=== PATIENT | female | born 1995 | race Caucasian/White ===

== ENCOUNTER 2021-11-24 09:20 | Outpatient (CLI) | payer BC, SELFPAY | END 2021-11-24 09:21 | disposition home or self-care (01) | LOC: NFLDREF 16:26 | PROVIDERS: PCP Nurse Practitioner Family; Visit Provider Family Medicine | DX: E03.9 Hypothyroidism, unspecified (principal) | CPT/HCPCS: 84439; 84443 ==

== ENCOUNTER 2023-02-25 07:29 | Outpatient (CLI) | payer OTHER, SELFPAY | END 2023-02-25 07:30 | disposition home or self-care (01) | LOC: NFLDREF 02-26 07:03 | PROVIDERS: PCP Nurse Practitioner Family; Referring Provider Nurse Practitioner Family; Visit Provider Family Medicine | DX: E03.9 Hypothyroidism, unspecified (principal); Z13.1 Encounter for screening for diabetes mellitus | CPT/HCPCS: 82947; 84443 ==

== ENCOUNTER 2024-03-01 11:34 | Outpatient (CLI) | payer OTHER, SELFPAY | END 2024-03-01 11:35 | disposition home or self-care (01) | LOC: NFLDREF 11:36 | PROVIDERS: PCP Nurse Practitioner Family; Visit Provider Family Medicine | DX: E03.9 Hypothyroidism, unspecified (principal); N93.9 Abnormal uterine and vaginal bleeding, unspecified; Z13.220 Encounter for screening for lipoid disorders; Z13.1 Encounter for screening for diabetes mellitus | CPT/HCPCS: 80061; 82947; 84443; 84702 ==

== ENCOUNTER 2024-03-30 11:00 | Outpatient (CLI) | payer OTHER, SELFPAY ==
--- NOTE | 2024-03-30 11:15 | CRLHL7_ITS ---
For Patients: As a result of the Cures Act, medical imaging exams and procedure reports are released immediately into your electronic medical record. You may view this report before your referring provider. If you have questions, please contact your health care provider. INDICATION: First trimester scan, establish dates. COMPARISON: None. TECHNIQUE: Real-time marie-scale imaging of the pelvis was performed. FINDINGS: Sonographic imaging demonstrates a single living intrauterine gestation. The embryo demonstrates a regular cardiac rate measuring 176 beats per minute. The embryo`s crown-rump length measurement of 1.9 cm corresponds to a gestational age of 8 weeks 3 days with a sonographic due date of 11/06/2024. There is a normal-appearing yolk sac. There are no gross abnormalities noted within the embryo at this early state of development. The gestational sac has a normal appearance. There is a 2.2 x 0.3 x 1.9 cm perigestational hemorrhage. The amount of fluid within the sac appears appropriate for gestational age. The cervix is closed. The myometrium appears normal. The ovaries are of normal size. There are no suspicious fluid collections noted in the cul-de-sac. IMPRESSION: Single living intrauterine with sonographic gestational age 8 weeks 3 days and sonographic due date of 11/06/2024. Subchorionic hemorrhage measures 2.2 x 0.3 x 1.9 cm. Dictated by Jose Alejandro Matamoros MD @ 03/30/2024 12:29:22 PM (Electronically Signed)
== END 2024-03-30 11:01 | disposition home or self-care (01) ==
LOC: US 11:01
PROVIDERS: PCP Nurse Practitioner Family; Visit Provider Advanced Practice Midwife
DX: Z34.91 Encounter for supervision of normal pregnancy, unspecified, first trimester (principal); O20.9 Hemorrhage in early pregnancy, unspecified; Z3A.08 8 weeks gestation of pregnancy
CPT/HCPCS: 76817

== ENCOUNTER 2024-03-30 11:37 | Outpatient (CLI) | payer OTHER, SELFPAY | END 2024-03-30 11:38 | disposition home or self-care (01) | PROVIDERS: PCP Nurse Practitioner Family; Visit Provider Advanced Practice Midwife | DX: Z34.01 Encounter for supervision of normal first pregnancy, first trimester (principal) | CPT/HCPCS: 83020; 83021; 84443; 85660; 86592; 86703; 86704; 86706; 86762; 86787; 86803; 86850; 86900; 86901; 87086; 87340 ==

== ENCOUNTER 2024-05-23 08:15 | Outpatient (CLI) | payer OTHER, SELFPAY | END 2024-05-23 08:16 | disposition home or self-care (01) | LOC: NFLDREF 08:15 | PROVIDERS: PCP Nurse Practitioner Family; Visit Provider Advanced Practice Midwife | DX: E03.9 Hypothyroidism, unspecified (principal) | CPT/HCPCS: 84443 ==

== ENCOUNTER 2024-06-21 12:47 | Outpatient (CLI) | payer OTHER, SELFPAY | END 2024-06-21 12:48 | disposition home or self-care (01) | LOC: US 12:48 | PROVIDERS: PCP Nurse Practitioner Family; Visit Provider Advanced Practice Midwife | DX: Z34.92 Encounter for supervision of normal pregnancy, unspecified, second trimester (principal) | CPT/HCPCS: 76805 ==

== ENCOUNTER 2024-07-09 09:07 | Outpatient (CLI) | payer OTHER, SELFPAY ==
--- NOTE | 2024-07-09 09:15 | CRLHL7_ITS ---
For Patients: As a result of the Century Cures Act, medical imaging exams and procedure reports are released immediately into your electronic medical record. You may view this report before your referring provider. If you have questions, please contact your health care provider. INDICATION: Follow up biventricular echogenic foci TECHNIQUE: Limited transabdominal two-dimensional marie-scale ultrasound examination. COMPARISON: 06/21/2024 FINDINGS: There is a living fetus in cephalic lie with gestational age of 22 weeks 5 days and EDC of 11/07/2024. The heart rate is measured at 144 beats per minute and the rhythm appears regular. The amniotic fluid volume is within normal limits with single deepest pocket of 4.5 cm. The placenta is posterior with succenturiate lobe anteriorly. There is no evidence of previa. Biventricular echogenic foci are again demonstrated in the heart. The RVOT is within normal limits. IMPRESSION: 1. Living fetus in cephalic lie with gestational age of 22 weeks 5 days and EDC of 11/07/2024. 2. Biventricular echogenic foci again demonstrated in the heart. 3. Posterior placenta with succenturiate lobe anteriorly. Dictated by Dl Hernández MD @ 07/10/2024 6:21:52 AM (Electronically Signed)
== END 2024-07-09 09:08 | disposition home or self-care (01) ==
PROVIDERS: PCP Nurse Practitioner Family; Visit Provider Advanced Practice Midwife
DX: O28.3 Abnormal ultrasonic finding on antenatal screening of mother (principal); Z3A.22 22 weeks gestation of pregnancy
CPT/HCPCS: 76816

== ENCOUNTER 2024-08-07 13:43 | Outpatient (CLI) | payer OTHER, SELFPAY | END 2024-08-07 13:44 | disposition home or self-care (01) | PROVIDERS: PCP Family Medicine; Visit Provider Advanced Practice Midwife | DX: Z34.02 Encounter for supervision of normal first pregnancy, second trimester (principal); E03.9 Hypothyroidism, unspecified | CPT/HCPCS: 84443; 86592 ==

== ENCOUNTER 2024-09-28 14:00 | Outpatient (CLI) | payer OTHER, SELFPAY | END 2024-09-28 14:01 | disposition home or self-care (01) | LOC: NFLDREF 10-02 02:02 | PROVIDERS: PCP Family Medicine; Referring Provider Family Medicine; Visit Provider Advanced Practice Midwife | DX: E03.9 Hypothyroidism, unspecified (principal) | CPT/HCPCS: 84443 ==

== ENCOUNTER 2024-10-10 13:38 | Outpatient (CLI) | payer OTHER, SELFPAY ==
[2024-10-12 07:49] LABS: Strep B DNA Probe Negative (Negative)
[2024-10-12 08:00] LABS: Strep B Susceptibility Needed? No
== END 2024-10-10 13:39 | disposition home or self-care (01) ==
LOC: NFLDREF 13:39
PROVIDERS: PCP Family Medicine; Visit Provider Advanced Practice Midwife
DX: Z34.03 Encounter for supervision of normal first pregnancy, third trimester (principal)
CPT/HCPCS: 87081; 87653

== ENCOUNTER 2024-10-30 16:31 | Inpatient (IN) | payer OTHER, SELFPAY ==
[2024-10-30] VITALS (35 sets, daily range): BP systolic 127–184; BP diastolic 84–118; PULSE 59–85; RESP 16–20; TEMP 36.8–37; O2SAT 97–98; BMI 31.6
[2024-10-30 14:29] LABS: Hematocrit 36.3 % (33.0-51.0); Hemoglobin* 12.9 gm/dL (12.0-16.0); Mean Corpuscular HGB Conc 36 gm/dL (32-36); Mean Corpuscular Hemoglobin 32 pg (26-34); Mean Corpuscular Volume 91 fL (80-100); Red Blood Count 4.01 m/uL (4.00-5.20); White Blood Count* 7.72 K/uL (4.50-11.00)
[2024-10-30 14:36] LABS: Protein Creatinine Ratio Urine 1.81 (0-0.19)
[2024-10-30 14:43] LABS: Slide Review Reflex No
[2024-10-30 14:47] LABS: Alanine Aminotransferase* 19 U/L (4-35); Aspartate Amino Transferase* 30 U/L (12-35); Blood Urea Nitrogen* 9 mg/dL (5-24); Creatinine* 0.6 mg/dL (0.5-1.5); Estimated Glomerular Filt Rate 125 ml/min
--- NOTE | 2024-10-30 18:26 | P.LDBA_ITS ---
Subjective History of Present Illness Narrative: Sheri is a at 38 6/7 weeks gestation that presented to her clinic visit today with elevated blood pressures. She was sent to triage for evaluation where she has continued to have elevated blood pressures now meeting criteria for Pre- eclampsia without severe features based on p/c ratio of 1.81 with all other labs normal. She had an initial blood pressure on arrival that was severe range followed by another, however she had just walked down from clinic. She does not yet meet criteria for severe features. She denies any contractions or leaking of fluid today. She endorses movement. She denies any headache, blurred vision, or epigastric pain. Her full history and physical was dictated by NAOMI Mathur on 10/18/2024. Please see this for details. Specific Issues/Plans G1 Partner: Traci??It is a boy! H&P completed by Kareen SALGADO 10/18/2024?? # Bilateral pelviectasis (both 4mm) UTD A1 (low risk) f/u at or after 32wks--resolved on f/u US at 22 weeks (not on final report, message sent to inquire about adding it) Pt declined additional follow-up due to insurance # Biventricular echogenic foci Follow-up US: seen again Offered Level 2: declines at this time; reviewed slight increase risk for genetic disorders when seen alone Genetic screening: low risk # Succenturiate anterior accessory lobe #Hypothyroid On Levothyroxine 25mcg 4x per week and 50 mcg 3x per week, increased at onset of TSH 16w: 2.3 TSH 26 wks:1.77 Check with 34 week labs: 2.13 #Hep B non-immune Received 2nd dose at 20wk visit (06/21/2024). 3rd dose due after 10/25/24. Imaging:?? 1st Trimester 04/27/2024-Single living intrauterine with sonographic gestational age 8 weeks 3 days and sonographic due date of 11/06/2024. Subchorionic hemorrhage measures 2.2 x 0.3 x 1.9 cm. Anatomy Scan 06/21/2024: Bilateral pelviectasis. AP diameter of the renal pelves is 4 mm on both the right and left, UTD A1: Low risk category. Follow-up ultrasound is recommended at or after 32 weeks gestational age. Echogenic foci are noted in the right and left ventricles. Correlation with maternal risk factors is recommended. Limited RVOT view. Consider short interval follow-up to demonstrate this anatomy to better advantage. Succenturiate anterior accessory placental lobe. Follow-up US 07/10/2024: IMPRESSION: 1. Living fetus in cephalic lie with gestational age of 22 weeks 5 days and EDC of 11/07/2024. 2. Biventricular echogenic foci again demonstrated in the heart. 3. Posterior placenta with succenturiate lobe anteriorly. ?? COVID:??03/05/2024 Flu:??03/05/2024 Hep B series: 1st given 04/27/2024 Tdap:?08/28/2024 32wk Mental Health:??09/11/2024 both 0's Pap: (Only high-risk abnormal pap in problem list)?? OB - Problem Based A/P Additional Plan (1) Pre-eclampsia: Status: Acute (2) Placenta succenturiata in second trimester: Problem details: Succenturiate placenta. Status: Acute (3) Dilation of renal pelvis of fetus: Problem details: Bilateral: R 4.1mm, L 4.0 mm on 20 w anatomy scan. Status: Acute (4) Encounter for induction of labor: Status: Acute (5) 38 weeks gestation of : Status: Acute Plan ASSESSMENT:? 28 yo at 38 6/7 weeks gestation? complicated by:?Bilateral pelviectasis appeared resolved at 22 weeks but declined 3rd trimester scan; biventricuar echogenic foci, declined level II; Succentruriate anterior accessory lobe; hypothyroid, hep b non-immune Labor type: Induced, not in labor? Category 1 FHR pattern.?? Labor complicated by: Pre-eclampsia without SF? GBS negative? ? PLAN:? 1. Routine intrapartum cares as ordered. Discussed induction options, recommended cytotec and recheck cervical exam before placement of next dose. Will plan to switch to Pitocin when able. Quesitons answered with her and her . She agrees with plan. 2. Monitoring per policy, continuous? 3. Planning unmedicated . Desires water . Consent signed. Hep C negative. Candidate for analgesia of choice if desired. Aware she risks out of waterbirth if she needed treatment for blood pressures with IV BP meds or magnesium.?? 4. Patient encouraged to reposition and ambulate to promote physiologic labor and .? 5. Continue to monitor BP per protocol. If she has another elevated BP, we would need to consider treatment for Severe Pre-eclampsia (with Severe Feature). She does not meet this criteria at this time. She is aware and understands the plan. Labs WNL with exception of elevated p/c ratio. Will repeat as needed. MD flatwork catcher is aware of patient's BP's and agrees with plan. 6. Anticipate ? Delivery/Labor/Induction Plan Plan: induction Induction method: per misoprostol protocol OB Exam Physical Exam Vital signs: Temp Pulse Resp BP Pulse Ox 98.3 F 80 20 144/96 H 97 10/30/24 18:04 10/30/24 18:04 10/30/24 18:04 10/30/24 18:04 10/30/24 18:03 Narrative: Vitals Reviewed Constitutional:? Alert and oriented x3 HEENT:? Normocephalic, atraumatic Neck:? Supple Lungs:? Clear to auscultation bilaterally Heart:? Regular rate and rhythm, no murmur, rub or gallop Abdomen:? Soft, nontender, and gravid. Vertex by Gallo's, confirmed with cervical exam. Extremities:? No edema or erythema Cervix: 2 cm/70%/-2 station/vertex NST: 115 bpm/moderate variability/15x15 accelerations/no decelerations/contractions irregular Detailed Labor and Delivery Exam Patient Gravid: yes
--- NOTE | 2024-10-30 20:02 | P.OBPN_ITS ---
Subjective Date Seen: 10/30/24 Narrative: Sheri is a at 38 6/7 weeks gestation that presented to her clinic visit today with elevated blood pressures that were sustained in triage. She has since met criteria for Pre-eclampsia with severe features based on multiple severe range blood pressures. IOL was started with vaginal cytotec. She reports mild cramping but denies any leaking of fluid or bleeding. Objective Exam: Objective: Constitutional: Alert and oriented x3, no distress, coping well Vital signs stable, see nurse documentation Abdomen: gravid, contractions palpate mild with contractions and soft between NST: 120 bpm/moderate variability/15x15 accelerations/no decelerations/contractions irregular Vital Signs: Last Vital Signs Temp 98.3 F 10/30/24 18:04 Pulse 81 10/30/24 19:58 Resp 20 10/30/24 18:04 BP 161/101 H 10/30/24 19:58 Pulse Ox 97 10/30/24 18:03 Plan Plan: 28 yo at 38 6/7 weeks gestation? complicated by:?Bilateral pelviectasis appeared resolved at 22 weeks but declined 3rd trimester scan; biventricular echogenic foci, declined level II; Succenturiate anterior accessory lobe; hypothyroid, hep b non-immune Labor type: Induced, not in labor? Category 1 FHR pattern.?? Labor complicated by: Pre-eclampsia with SF GBS negative? ? PLAN:? 1. Routine intrapartum cares as ordered. Discussed induction options, recommended cytotec and recheck cervical exam before placement of next dose. Will plan to switch to Pitocin when able. Quesitons answered with her and her . She agrees with plan. 2. Monitoring per policy, continuous? 3. Candidate for analgesia of choice if desired. Patient risks out of waterbirth due to severe pre-eclampsia needing Magnesium. 4. Patient encouraged to reposition and ambulate to promote physiologic labor and .? 5. Formal consulted Dr. Sprague for Pre-eclampsia with severe features based on multiple severe range blood pressures. Plan of care reviewed with magnesium sulfate 4 g bolus and 2 g continuous, labs every 6 hours, and start oral nifedipine due to sustained mild to severe range BP's. Discussed labor co- management, at this time both parties feel comfortable with this plan. Will update Dr. Sprague with any changes. She agrees with plan of cytotec and switching to IV pitocin when able. 6. Anticipate ?
[2024-10-30] MEDS: LACTATED RINGERS 1000 ML 1,000 ML 125 ML IV (20:13)
[2024-10-30] MEDS: MAGNESIUM IV 4 GM/100 ML PIGGYBACK IVPB (20:24)
[2024-10-30] MEDS: LABETALOL HCL 5 MG/ML inj IVP (20:37)
[2024-10-30] MEDS: MAGNESIUM Infusion 40 GM/1,000 ML IV.SOLN IVPB (20:52)
[2024-10-30 21:21] LABS: Hematocrit 36.6 % (33.0-51.0); Hemoglobin* 12.8 gm/dL (12.0-16.0); Mean Corpuscular HGB Conc 35 gm/dL (32-36); Mean Corpuscular Hemoglobin 32 pg (26-34); Mean Corpuscular Volume 92 fL (80-100); Red Blood Count 4.00 m/uL (4.00-5.20); White Blood Count* 8.53 K/uL (4.50-11.00)
[2024-10-30 21:26] LABS: Slide Review Reflex No
[2024-10-30 21:40] LABS: Alanine Aminotransferase* 18 U/L (4-35); Aspartate Amino Transferase* 32 U/L (12-35); Blood Urea Nitrogen* 9 mg/dL (5-24); Creatinine* 0.7 mg/dL (0.5-1.5); Est. Creatinine Clearance* 103.32; Estimated Glomerular Filt Rate 121 ml/min
--- NOTE | 2024-10-30 22:30 | P.OBCN_ITS ---
OB - CN: HPI Date of Consult Date Seen: 10/30/24 Patient: [facility] Patient Consult date: 10/30/24 Requesting Physician: Karena Diaz CNM Primary Care Provider: Akil Martinez MD Consult Narrative Reason for consult: other (severe gestational hypertension) Narrative: The patient is a 28 year old G1 P 0 at 38 6/7 weeks gestation that was admitted to the [facility] on 10/30/24 for induction of labor secondary to pre- eclampsia without severe features. Labs were normal at the time of admissio except for an elevated urine P/C ratio. monitoring was reassuring. Induction was initiated with a dose of vaginal misoprostol 25 mcg. She has now had 2 severe range BPs 4 hours apart, indicating pre-eclampsia with severe features. History of Present Dating criteria: based on LMP care: good care Ultrasounds: normal 1st trimester US and abnormal US findings Abnormal ultrasound findings: 1st Trimester 04/27/2024-Single living intrauterine with sonographic gestational age 8 weeks 3 days and sonographic due date of 11/06/2024. Subchorionic hemorrhage measures 2.2 x 0.3 x 1.9 cm. Anatomy Scan 06/21/2024: Bilateral pelviectasis. AP diameter of the renal pelves is 4 mm on both the right and left, UTD A1: Low risk category. Follow-up ultrasound is recommended at or after 32 weeks gestational age. Echogenic foci are noted in the right and left ventricles. Correlation with maternal risk factors is recommended. Limited RVOT view. Consider short interval follow-up to demonstrate this anatomy to better advantage. Succenturiate anterior accessory placental lobe. Follow-up US 07/10/2024: IMPRESSION: 1. Living fetus in cephalic lie with gestational age of 22 weeks 5 days and EDC of 11/07/2024. 2. Biventricular echogenic foci again demonstrated in the heart. 3. Posterior placenta with succenturiate lobe anteriorly. complications: preeclampsia Type: severe Medical Complications: hypothyroidism History History 1 Elective abortions Para 0 Spontaneous abortions Hx # Term Pregnancies Ectopic pregnancies Hx # Pregnancies Multiple births Number of Living Children 0 Labs Blood type: O (+) positive Rubella: immune RPR/VDLR: nonreactive GBS status: negative HBsAG: negative OB Labs: Lab Assessment Start: 10/30/24 17:10 Freq: ONCE Status: Complete Protocol: PC.OBGBS Activity Type Activity Date Activity User E-sign Co-sign Detail Recorded Client Recorded Date Recorded By Document 10/30/24 18:15 LLB No Response 10/30/24 18:19 LLB 10/30/24 18:15 Lab Assessment GBS Status negative GBS Additional Criteria None Is Patient Allergic to Penicillin? No No Treatment Needed OK Are Labs Available Yes Maternal Blood Type O Maternal RH Factor Positive Evaluate Maternal Rubella Immune Status Immune Hepatitis B Surface Antigen Negative Maternal HIV Status Negative Maternal Syphillis (RPR) Status Negative [facility] Medical History Acne (07/26/09) ?L70.9 - Acne, unspecified (ICD-10) Perforated left tympanic membrane on examination ?H72.92 - Unspecified perforation of tympanic membrane, left ear (ICD-10) Otitis media ?H66.90 - Otitis media, unspecified, unspecified ear (ICD-10) Abnormal uterine bleeding ?N93.9 - Abnormal uterine and vaginal bleeding, unspecified (ICD-10) Preauricular cellulitis ?L03.211 - Cellulitis of face (ICD-10) Otalgia ?H92.09 - Otalgia, unspecified ear (ICD-10) Migraine (01/23/10) ?G43.909 - Migraine, unspecified, not intractable, without status migrainosus (ICD-10) Labyrinthitis ?H83.09 - Labyrinthitis, unspecified ear (ICD-10) Ear problem ?H93.90 - Unspecified disorder of ear, unspecified ear (ICD-10) Surgical History [place] teeth removed ?K08.409 - Partial loss of teeth, unspecified cause, unspecified class (ICD- 10) History of facial surgery ?Z98.890 - Other specified postprocedural states (ICD-10) Social History Narrative: SOCIAL Education: Some master's certificate Work: L[employer] Eng[employer] Partner: Gwen general engineering teacher Lives with: With husbands Pets: Dogs Abuse: Denies past/present Special Diet: Denies Ok with a blood transfusion: yes Culture or samaritan beliefs: denies RISK FACTORS Exercise Times/wk: Walking and weights, 5x per Hx of Depression and/or Anxiety/other mood disorder: no hx Seat Belt Use: Routinely Smoking: Denies past/present Alcohol/day: Denies while ; Socially Caffeine: Coffee, less due to nausea Drug Use: Denies past/present Chicken Pox: Vaccinated? MRSA: Denies What is your current living situation?: I presently have a place to live Problems where you live: no known problems In the past 12 months, utilities in danger of being shut off: no In past 12 months, lack of transportation kept you from medical appts, meetings, work, or getting things needed for daily living: no In the past 12 mos, have been you worried that your food would run out before you had money to buy more?: never true In the past 12 mos, the food you bought just didn't last and you didn't have money to buy more?: never true Smoking Status: Never smoker How often does anyone, including family, friends and others, physically hurt you : never How often does anyone, including family, friends and others, insult or talk down to you: never How often does anyone, including family, friends and others, threaten you with harm: never How often does anyone, including family, friends and others, scream or curse at you: never Meds Home Medications and Allergies Home Medications ?Medication ?Instructions ?Recorded ?Confirmed ?Type levothyroxine 25 mcg tablet 25 - 50 mcg (1 - 2 x 25 mc g) PO 03/05/24 10/30/24 Rx DAILY #120 tabs vitamins no.119-iron 1 tab PO DAILY 03/30/24 10/30/24 History fumarate 29 mg-folic acid 1 mg tablet aspirin 81 mg tablet,delayed 81 mg PO QDAY 06/21/24 History release Allergies Allergy/AdvReac Type Severity Reaction Status Date / Time No Known Allergies Allergy Unknown Verified 10/30/24 19:22 OB - H&P: Exam Physical Exam: Vital signs: Temp Pulse Resp BP Pulse Ox 98.2 F 73 16 138/84 97 10/30/24 21:44 10/30/24 22:14 10/30/24 21:44 10/30/24 22:14 10/30/24 18:03 Constitutional: Constitutional: no acute distress OB - Results Labs Labs: Short CBC 10/30/24 10/30/24 Range/Units 14:15 20:55 WBC 7.72 8.53 (4.50-11.00) K/uL Hgb 12.9 12.8 (12.0-16.0) gm/dL Hct 36.3 36.6 (33.0-51.0) % Plt Count 199 218 (140-440) K/uL BMP 10/30/24 10/30/24 14:15 20:55 BUN 9 9 Creatinine 0.6 0.7 Liver Function 10/30/24 10/30/24 Range/Units 14:15 20:55 AST 30 32 (12-35) U/L ALT 19 18 (4-35) U/L OB - CN: A/P Assessment and Plan (1) Pre-eclampsia: Status: Acute (2) Placenta succenturiata in second trimester: Problem details: Succenturiate placenta. Status: Acute (3) Dilation of renal pelvis of fetus: Problem details: Bilateral: R 4.1mm, L 4.0 mm on 20 w anatomy scan. Status: Acute (4) Encounter for induction of labor: Status: Acute (5) 38 weeks gestation of : Status: Acute Plan Start magnesium sulfate prophylaxis, continue until 24 hours post delivery. Continue labor induction, pitocin infusion appropriate. CNM management of labor appropriate, as she is comfortable with management at this time. I am available for consultation as needed or for transfer of care if needed. Start nifedipine ER 30 mg po daily.
[2024-10-31] VITALS (153 sets, daily range): BP systolic 108–167; BP diastolic 63–110; PULSE 58–100; RESP 16–20; TEMP 36.4–37.3; O2SAT 93–100
[2024-10-31] MEDS: OXYTOCIN 30 unit/500 ML in NS 30 UNIT/500 ML BAG IVPB (01:28)
[2024-10-31 01:37] LABS: Hematocrit 40.8 % (33.0-51.0); Hemoglobin* 14.3 gm/dL (12.0-16.0); Mean Corpuscular HGB Conc 35 gm/dL (32-36); Mean Corpuscular Hemoglobin 32 pg (26-34); Mean Corpuscular Volume 92 fL (80-100); Red Blood Count 4.44 m/uL (4.00-5.20); White Blood Count* 9.83 K/uL (4.50-11.00)
[2024-10-31 01:50] LABS: Slide Review Reflex No
[2024-10-31 01:55] LABS: Blood Urea Nitrogen* 9 mg/dL (5-24); Creatinine* 0.7 mg/dL (0.5-1.5); Est. Creatinine Clearance* 103.32; Estimated Glomerular Filt Rate 121 ml/min
[2024-10-31 01:56] LABS: Alanine Aminotransferase* 21 U/L (4-35); Aspartate Amino Transferase* 34 U/L (12-35)
[2024-10-31] MEDS: LEVOTHYROXINE 25 MCG TABLET PO (06:55)
--- NOTE | 2024-10-31 07:38 | P.OBPN_ITS ---
Subjective Date Seen: 10/31/24 Narrative: Sheri has had stable blood pressures since being started on magnesium and Nifedipine. She was switched form Cytotec to IV Pitocin titration overnight. She has been génesis irregularly but states they are mild in intensity. She did sleep and rest some overnight but is feeling groggy this morning. We discussed a SVE and possibility of AROM. She is mostly unchanged on SVE with the exception of being slight more effaced. Will deferred AROM at this time but can consider later based on clinical picture. She is probably considering an epidural but is uncertain at this time. Objective Vital Signs: Last Vital Signs Temp 97.9 F 10/31/24 06:45 Pulse 62 10/31/24 07:35 Resp 18 10/31/24 06:45 BP 116/69 10/31/24 07:35 Pulse Ox 97 10/30/24 18:03 Pelvic Exam Dilation (cm): 2 Effacement (%): 80 Station: -2 Contractions Monitor mode: External Contraction Frequency: 1.5-7 min Contraction pattern: Regular Contraction intensity: Mild Pitocin Rate (mU/min): 11 Assessment Assessment: induction ongoing Station: -2 Status: Category l Heart Rate Baseline: 115 [employer] Open Stack Administrator Variability: Moderate (6-25) Monitor Accelerations: Present Monitor Decelerations: None Plan Plan: Plan: 28 yo at 39 0/7 weeks gestation? complicated by:?Bilateral pelviectasis appeared resolved at 22 weeks but declined 3rd trimester scan; biventricular echogenic foci, declined level II; Succenturiate anterior accessory lobe; hypothyroid, hep b non-immune Labor type: Induced, early labor? Category 1 FHR pattern.?? Labor complicated by: Pre-eclampsia with SF GBS negative? ? PLAN:? 1. Routine intrapartum cares as ordered. Discussed induction options, on Pitocin currently. Discussed AROM but decided not to proceed with it at this time. Will consider later. Continue with Pitocin titration. 2. Monitoring per policy, continuous? 3. Candidate for analgesia of choice if desired. Patient risks out of waterbirth due to severe pre-eclampsia needing Magnesium. Considering epidural later in labor. Candidate at any time. 4. Patient encouraged to reposition and ambulate to promote physiologic labor and .? 5. Continue with collaborative care with Dr. Lovell at this time as long as both parties continue to feel comfortable with this plan. 6. Anticipate ?
[2024-10-31 07:56] LABS: Hematocrit 39.1 % (33.0-51.0); Hemoglobin* 13.8 gm/dL (12.0-16.0); Mean Corpuscular HGB Conc 35 gm/dL (32-36); Mean Corpuscular Hemoglobin 32 pg (26-34); Mean Corpuscular Volume 91 fL (80-100); Red Blood Count 4.29 m/uL (4.00-5.20); White Blood Count* 13.15 K/uL (4.50-11.00)
--- NOTE | 2024-10-31 07:58 | P.OBPN_ITS ---
Subjective Time Seen by Provider: 11:30 Date Seen: 10/31/24 Narrative: Sheri is a 28yo ongoing IOL at 39w0d GA for preeclampsia with severe features. She is an established patient of the CNM service, status post OB consultation by Dr. Sprague last night. is otherwise complicated by hypothyroidism, succenturiate placenta. Patient meets criteria for preeclampsia with severe features given sustained severe range blood pressures necessitating treatment. She is maintained on a long-acting antihypertensive regimen of nifedipine XL 30 mg daily. Serial HELLP labs have been obtained, found to be within normal limits. Last labs at 0745 include platelets of 203, creatinine of 0.7, AST of 36, ALT of 20. Patient is asymptomatic - no headache, vision changes right upper quadrant pain. Her blood pressures have been in the normal to mild range since she did receive IV la betalol and then was started on nifedipine last night. Robust urine output noted, 2085mL in last 8 hours. Induction has included p.o. Cytotec and IV Pitocin. On last exam, she was found to be unchanged at 2/80/-2 by Felipa Delarosa CNM. Patient is currently co-managed between OB and CNM service. She desires labor management by her established CNM team. - Agree to continue her current co-management of care. Recommend active management of her induction given preeclampsia with severe features and potential for worsening maternal/ condition. Recommend continued Pitocin titration and amniotomy as her labor progresses. Plan discussed with environmental services floor tech CNM, Felipa Delarosa, who is in agreement with this plan. - Continuous monitoring - Continue magnesium sulfate infusion at 2g/hr through delivery and for 24 hours . Recommend Q 6 HELLP labs during this time. - Diligent blood pressure monitoring ongoing, plan to treat any sustained severe range blood pressures as needed. - Strict I/O assessment ongoing. - EFW unknown, last growth assessment was at [facility] on 06/21. EFW approximately 3400g by Alf. - Pediatrics provider to attend delivery in the setting of preE with SF Entire plan of care reviewed with Felipa Delarosa CNM. She is comfortable continuing labor management at this time, agree this is appropriate given patient's goals of care. I am available for consultation as needed or for transfer of care if needed. Objective Vital Signs: Last Vital Signs Temp 97.9 F 07/16/25 06:45 Pulse 62 10/31/24 07:35 Resp 18 10/31/24 06:45 BP 116/69 10/31/24 07:35 Pulse Ox 97 10/30/24 18:03 Pelvic Exam Dilation (cm): 2 Effacement (%): 80 Station: -2 Contractions Monitor mode: External Contraction pattern: Regular Contraction intensity: Mild Pitocin Rate (mU/min): 11 Assessment Station: -2 Status: Category l Heart Rate Baseline: 115 Monitor Accelerations: Present Monitor Decelerations: None
[2024-10-31 08:03] LABS: Slide Review Reflex No
[2024-10-31 08:15] LABS: Alanine Aminotransferase* 20 U/L (4-35); Aspartate Amino Transferase* 36 U/L (12-35); Blood Urea Nitrogen* 7 mg/dL (5-24); Creatinine* 0.7 mg/dL (0.5-1.5); Est. Creatinine Clearance* 103.32; Estimated Glomerular Filt Rate 121 ml/min
[2024-10-31] MEDS: LACTATED RINGERS 1000 ML 1,000 ML 75 ML IV ×2 (09:19→16:13)
[2024-10-31 14:18] LABS: Hematocrit 39.0 % (33.0-51.0); Hemoglobin* 13.7 gm/dL (12.0-16.0); Mean Corpuscular HGB Conc 35 gm/dL (32-36); Mean Corpuscular Hemoglobin 32 pg (26-34); Mean Corpuscular Volume 91 fL (80-100); Red Blood Count 4.31 m/uL (4.00-5.20); White Blood Count* 11.51 K/uL (4.50-11.00)
[2024-10-31 14:26] LABS: Slide Review Reflex No
[2024-10-31 14:33] LABS: Blood Urea Nitrogen* 8 mg/dL (5-24); Creatinine* 0.6 mg/dL (0.5-1.5); Est. Creatinine Clearance* 120.54; Estimated Glomerular Filt Rate 125 ml/min
[2024-10-31 14:34] LABS: Alanine Aminotransferase* 21 U/L (4-35); Aspartate Amino Transferase* 33 U/L (12-35)
[2024-10-31] MEDS: LIDOCAINE 2% (PF) 5 ML VIAL EPIDURAL ×3 (14:40→23:18)
[2024-10-31] MEDS: ROPIVACAINE 0.2% 100 ml 100 ML 12 MG EPIDURAL ×3 (14:40→21:18)
--- NOTE | 2024-10-31 15:06 | P.ANBPRC_ITS ---
[facility] Medical History Acne (07/26/09) ?L70.9 - Acne, unspecified (ICD-10) Perforated left tympanic membrane on examination ?H72.92 - Unspecified perforation of tympanic membrane, left ear (ICD-10) Otitis media ?H66.90 - Otitis media, unspecified, unspecified ear (ICD-10) Abnormal uterine bleeding ?N93.9 - Abnormal uterine and vaginal bleeding, unspecified (ICD-10) Preauricular cellulitis ?L03.211 - Cellulitis of face (ICD-10) Otalgia ?H92.09 - Otalgia, unspecified ear (ICD-10) Migraine (01/23/10) ?G43.909 - Migraine, unspecified, not intractable, without status migrainosus (ICD-10) Labyrinthitis ?H83.09 - Labyrinthitis, unspecified ear (ICD-10) Ear problem ?H93.90 - Unspecified disorder of ear, unspecified ear (ICD-10) Surgical History Darling teeth removed ?K08.409 - Partial loss of teeth, unspecified cause, unspecified class (ICD- 10) History of facial surgery ?Z98.890 - Other specified postprocedural states (ICD-10) Social History Narrative: SOCIAL Education: Some master's certificate 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 MRSA: Denies What is your current living situation?: I presently have a place to live Problems where you live: no known problems In the past 12 months, utilities in danger of being shut off: no In past 12 months, lack of transportation kept you from medical appts, meetings, work, or getting things needed for daily living: no In the past 12 mos, have been you worried that your food would run out before you had money to buy more?: never true In the past 12 mos, the food you bought just didn't last and you didn't have money to buy more?: never true Smoking Status: Never smoker How often does anyone, including family, friends and others, physically hurt you : never How often does anyone, including family, friends and others, insult or talk down to you: never How often does anyone, including family, friends and others, threaten you with harm: never How often does anyone, including family, friends and others, scream or curse at you: never Meds Home Medications and Allergies Home Medications ?Medication ?Instructions ?Recorded ?Confirmed ?Type levothyroxine 25 mcg tablet 25 - 50 mcg (1 - 2 x 25 mc g) PO 03/05/24 10/30/24 Rx DAILY #120 tabs vitamins no.119-iron 1 tab PO DAILY 03/30/24 10/30/24 History fumarate 29 mg-folic acid 1 mg tablet aspirin 81 mg tablet,delayed 81 mg PO QDAY 06/21/24 History release Allergies Allergy/AdvReac Type Severity Reaction Status Date / Time No Known Allergies Allergy Unknown Verified 10/30/24 19:22 Results Labs Labs: Laboratory Results - last 24 hr 10/30/24 10/30/24 10/31/24 18:00 20:55 01:30 WBC 8.53 9.83 RBC 4.00 4.44 Hgb 12.8 14.3 Hct 36.6 40.8 MCV 92 92 MCH 32 32 MCHC 35 35 Plt Count 218 215 BUN 9 9 Creatinine 0.7 0.7 Estimated Creat Clear 103.32 103.32 Estimated GFR 121 121 AST 32 34 ALT 18 21 Blood Type O Positive Antibody Screen NEGATIVE 10/31/24 10/31/24 07:50 14:00 WBC 13.15 H 11.51 H RBC 4.29 4.31 Hgb 13.8 13.7 Hct 39.1 39.0 MCV 91 91 MCH 32 32 MCHC 35 35 Plt Count 203 215 BUN 7 8 Creatinine 0.7 0.6 Estimated Creat Clear 103.32 120.54 Estimated GFR 121 125 AST 36 H 33 ALT 20 21 Blood Type Antibody Screen Vital Signs Vital Signs: Last Vital Signs Temp 97.6 F 10/31/24 13:01 Pulse 72 10/31/24 15:05 Resp 18 10/31/24 06:45 BP 151/100 H 10/31/24 15:05 Pulse Ox 98 10/31/24 15:03 Weight: 84.368 kg Height: 162.56 cm Anesthesia Procedures Epidural Insertion Patient Location: OB Start Time: 14:15 Stop Time: 15:15 Start Date: 10/31/24 Stop Date: 10/31/24 Reason for Block: procedure for pain Patient Position: sitting Performed By: Dipti Tom Preanesthetic Checklist: IV checked, risks and benefits discussed, monitors and equipment checked, pre-op evaluation, timeout performed and anesthesia consent Prep: chlorhexidine gluconate Monitoring: blood pressure monitoring, continuous pulse oximetry and heart rate Approach: midline Vertebral Space: lumbar (1-5) Epidural Technique: GRANT saline Needle Type: Tuohy needle Injection Technique: continuous catheter (continuous catheter) Needle gauge: 17 Needle Length (cm): 10 cm Needle Insertion Depth (cm): 6 Catheter Gauge: 19 Catheter Type: multi-orifice Catheter at skin depth (cm): 15 Test Dose Result: negative and lidocaine 1.5% with epinephrine 1 to 200,000
--- NOTE | 2024-10-31 15:56 | P.OBPN_ITS ---
Subjective Date Seen: 10/31/24 Narrative: Sheri has continued on Pitocin and is currently titrated to 20mU. she was still not feeling painful génesis so we discussed AROM and considering IUPC to be able to increase the Pitocin beyond this point comfortably. She is agreeable to AROM but would like to proceed with epidural placement before AROM. She received an epidural and is now comfortable. AROM was performed with a small amount of clear fluid as well as blood show. Before AROM SVE was unchanged but more anterior. Cervix was able to easily be stretched to 3cm after AROM.Tolerated procedure well. Plan to recheck in about 2 hours or sooner PRN. If unchanged at the next check will consider IUPC and increase in Pitocin titration. Questions answered. Blood pressures have been elevated but not in the treatable range at this time. After consultation wit Dr. Lovell, no plan change to BP medication dose at this time. IV labetalol PRN for severe range BP control. Objective Vital Signs: Last Vital Signs Temp 98.2 F 10/31/24 15:03 Pulse 71 10/31/24 15:54 Resp 18 10/31/24 15:03 BP 138/91 H 10/31/24 15:54 Pulse Ox 99 10/31/24 15:53 Pelvic Exam Dilation (cm): 2.5 Effacement (%): 80 Station: -2 Contractions Monitor mode: External Contraction Frequency: 2-4 Contraction pattern: Regular Contraction intensity: Mild Pitocin Rate (mU/min): 20 Assessment Assessment: induction ongoing Station: -2 Amniotic Membrane Status: AROM Status: Category l Heart Rate Baseline: 120 Solution Consultant Variability: Moderate (6-25) Monitor Accelerations: Present Monitor Decelerations: None Plan Plan: 28 yo at 39 0/7 weeks gestation? complicated by:?Bilateral pelviectasis appeared resolved at 22 weeks but declined 3rd trimester scan; biventricular echogenic foci, declined level II; Succenturiate anterior accessory lobe; hypothyroid, hep b non-immune Labor type: Induced, early labor? Category 1 FHR pattern.?? Labor complicated by: Pre-eclampsia with SF GBS negative? ? PLAN:? 1. Routine intrapartum cares as ordered. AROM performed with clear fluid. Continue with Pitocin at current dose. Consider IUPC and increasing past 20mU if unchanged at next check. 2. Monitoring per policy, continuous? 3. Candidate for analgesia of choice if desired. Effective epidural currently in place. 4. Patient encouraged to reposition and ambulate to promote physiologic labor and .? 5. Continue with collaborative care with Dr. Lovell at this time as long as both parties continue to feel comfortable with this plan. 6. Anticipate ?
[2024-10-31] MEDS: MAGNESIUM Infusion 40 GM/1,000 ML IV.SOLN IVPB (16:13)
--- NOTE | 2024-10-31 17:53 | P.OBPN_ITS ---
Subjective Date Seen: 10/31/24 Narrative: Sheri was comfortable with her epidural but is now feeling pain in her lower uterus with contractions. She appeared to be géneiss more frequently than every 2 minutes for 2 10 minute periods and was feeling them so the decision was made to half the Pitocin rate. Placed an IUPC with shared decision making and informed consent. Placed without difficulty. Will plan to increase the Pitocin by 2 per protocol to get to adequate. Encouraged position changes and can consi jhon epidural bolus if needed for pain control. Objective Vital Signs: Last Vital Signs Temp 97.9 F 10/31/24 16:47 Pulse 71 10/31/24 17:52 Resp 16 10/31/24 16:47 BP 143/97 H 10/31/24 17:52 Pulse Ox 99 10/31/24 15:53 Pelvic Exam Dilation (cm): 3 Effacement (%): 80 Station: -2 Contractions Monitor mode: External Contraction Frequency: 1-4 Contraction pattern: Regular Contraction intensity: Strong/Firm Pitocin Rate (mU/min): 10 Assessment Assessment: induction ongoing Station: -2 Amniotic Membrane Status: AROM Status: Category l Heart Rate Baseline: 120 Feeder Driver Variability: Moderate (6-25) Monitor Accelerations: Present Monitor Decelerations: None Plan Plan: 28 yo at 39 0/7 weeks gestation? complicated by:?Bilateral pelviectasis appeared resolved at 22 weeks but declined 3rd trimester scan; biventricular echogenic foci, declined level II; Succenturiate anterior accessory lobe; hypothyroid, hep b non-immune Labor type: Induced, early labor? Category 1 FHR pattern.?? Labor complicated by: Pre-eclampsia with SF GBS negative? ? PLAN:? 1. Routine intrapartum cares as ordered. Pitocin decreased due to hyperstimulation concerns. IUPC placed and will plan to increase as appropriate. 2. Monitoring per policy, continuous? 3. Candidate for analgesia. Epidural currently in place. Bloused by HOT KNIFE CUTTER for patient comfort. 4. Patient encouraged to reposition with RN assistance to promote physiologic labor and .? 5. Continue with collaborative care with Dr. Lovell at this time as long as both parties continue to feel comfortable with this plan. 6. Anticipate ?
[2024-10-31] MEDS: LABETALOL HCL 5 MG/ML inj IVP ×2 (21:42→22:38)
--- NOTE | 2024-10-31 21:42 | P.OBPN_ITS ---
Subjective Date Seen: 10/31/24 Narrative: Pitocin titration has now been increased to 14mU. It was not increased for a little while due to RN concerns for occasional late decelerations. On strip review they were not recurrent and hadn't occurred in a while so the Pitocin increase was continued. She had been comfortable and was able to sleep between position changes. However about 30 minutes ago she again began to feel pressure in her lower abdomen and low back. Will try bolus and position change to decrease pain. Consider consulting INFORMATION CLERK if not improving. On SVE pt was found to be 5cm/90%/-2. Will continue with Pitocin titration. MVU's per RN report have been 150-175. Blood pressure elevated to 160's x2 so will given iv labetalol per policy. Will also given Nifedipine unless significant drop in blood pressures is noted. Objective Vital Signs: Last Vital Signs Temp 98.4 F 10/31/24 20:13 Pulse 72 10/31/24 21:41 Resp 16 10/31/24 20:13 BP 159/105 H 10/31/24 21:41 Pulse Ox 96 10/31/24 18:38 Pelvic Exam Dilation (cm): 5 Effacement (%): 90 Station: -2 Contractions Monitor mode: External Contraction Frequency: 2-4 Contraction pattern: Irregular Contraction intensity: Strong/Firm Pitocin Rate (mU/min): 14 Assessment Assessment: induction ongoing Station: -2 Amniotic Membrane Status: AROM Status: Category l Heart Rate Baseline: 120 Exhibition Organiser Variability: Moderate (6-25) Monitor Accelerations: Present Monitor Decelerations: None Plan Plan: 28 yo at 39 0/7 weeks gestation? complicated by:?Bilateral pelviectasis appeared resolved at 22 weeks but declined 3rd trimester scan; biventricular echogenic foci, declined level II; Succenturiate anterior accessory lobe; hypothyroid, hep b non-immune Labor type: Induced, early labor? Category 1 FHR pattern.?Rare late variable noted but now resolved. ? Labor complicated by: Pre-eclampsia with SF GBS negative? ? PLAN:? 1. Routine intrapartum cares as ordered. Continue with Pitocin titration per policy for MVUs. 2. Monitoring per policy, continuous, IUPC in place. 3. Candidate for analgesia. Epidural currently in place. 4. Patient encouraged to reposition with RN assistance to promote physiologic labor and .? 5. Continue with collaborative care with Dr. Lovell at this time as long as both parties continue to feel comfortable with this plan. 6. Anticipate ?
[2024-10-31 22:44] LABS: Hematocrit 37.9 % (33.0-51.0); Hemoglobin* 13.5 gm/dL (12.0-16.0); Mean Corpuscular HGB Conc 36 gm/dL (32-36); Mean Corpuscular Hemoglobin 32 pg (26-34); Mean Corpuscular Volume 91 fL (80-100); Red Blood Count 4.17 m/uL (4.00-5.20); Slide Review Reflex No; White Blood Count* 11.76 K/uL (4.50-11.00)
[2024-10-31 22:45] LABS: Alanine Aminotransferase* 21 U/L (4-35); Aspartate Amino Transferase* 35 U/L (12-35); Blood Urea Nitrogen* 7 mg/dL (5-24); Creatinine* 0.6 mg/dL (0.5-1.5); Est. Creatinine Clearance* 120.54; Estimated Glomerular Filt Rate 125 ml/min
[2024-11-01] VITALS (101 sets, daily range): BP systolic 110–165; BP diastolic 67–107; PULSE 62–94; RESP 13–28; TEMP 36.4–36.8; O2SAT 95–99
[2024-11-01] MEDS: LIDOCAINE 2% (PF) 5 ML VIAL EPIDURAL (03:15)
[2024-11-01] MEDS: LABETALOL HCL 5 MG/ML inj IVP (03:22)
--- NOTE | 2024-11-01 03:58 | P.OBPN_ITS ---
Subjective Date Seen: 11/01/24 Narrative: Sheri made it to complete and has begun pushing. She has been pushing ef fectively. however she has had some increased pain which has made pushing difficult. DISTRICT COMMERCIAL SUPERINTENDENT was notified and bloused the epidural again to give her more relief. Started pushing a little before 0200 and took a small break for epidural bolus around 0345. She is pushing in multiple positions. She is make very slow descent so will monitor to make sure this continues. Pitocin was turned down by half after a stretch of late decels that have now resolved. Have been able to increase per protocol since that time. Blood pressures have been treated per protocol multiple times. Dr. Lovell has been updated on BP treatment and labor progress. Will continue to monitor for labor progress and interviene as needed. Objective Vital Signs: Last Vital Signs Temp 98.3 F 11/01/24 02:18 Pulse 70 11/01/24 03:50 Resp 16 11/01/24 00:45 BP 157/92 H 11/01/24 03:50 Pulse Ox 98 11/01/24 02:12 Pelvic Exam Dilation (cm): 10 Effacement (%): 100 Station: +1 Contractions Monitor mode: External Contraction Frequency: 3-5 Contraction pattern: Irregular Contraction intensity: Strong/Firm Pitocin Rate (mU/min): 15 Assessment Assessment: active labor and induction ongoing Station: +1 Amniotic Membrane Status: AROM Status: Category l Heart Rate Baseline: 110 Vegetable Harvest Machine Operator Variability: Moderate (6-25) (with periods of minimal ) Monitor Accelerations: Present Monitor Decelerations: None Plan Plan: 28 yo at 39 0/7 weeks gestation? complicated by:?Bilateral pelviectasis appeared resolved at 22 weeks but declined 3rd trimester scan; biventricular echogenic foci, declined level II; Succenturiate anterior accessory lobe; hypothyroid, hep b non-immune Labor type: Induced, second stage of labor? Category 1 FHR pattern.?Recurrent late decelerations now resolved. ? Labor complicated by: Pre-eclampsia with SF, on magnesium drip. GBS negative? ? PLAN:? 1. Routine intrapartum cares as ordered. Continue with Pitocin titration per policy. 2. Monitoring per policy, continuous, IUPC in place. 3. Candidate for analgesia. Epidural currently in place. Has been bolused by he DISTRICT COMMERCIAL SUPERINTENDENT for pain control. 4. Patient encouraged to reposition with RN assistance to encouraged descent and progress in 2nd stage.? 5. Continue with collaborative care with Dr. Lovell at this time as long as both parties continue to feel comfortable with this plan. Updated on labor progress and blood pressures treatments. 6. Anticipate
[2024-11-01] MEDS: ROPIVACAINE 0.2% 100 ml 100 ML 12 MG EPIDURAL (04:03)
[2024-11-01] MEDS: HYDRALAZINE HCL 20 MG/ML inj 10 MG IVP (04:14)
--- NOTE | 2024-11-01 04:27 | PM.OBPNL ---
Subjective Date Seen: 11/01/24 Narrative: Contacted by eFlipa Delarosa CNM for BP advice. Sheri is a 28yo at 39w1d ongoing IOL for preeclampsia with SF. Around 5, was noted to have sustained SRBP requiring IV labetolol 20mg at 2140, and I recommended a dose of nifedipine XL 30mg daily to be given. BPs were noted to improve until she had a nonsustained SRBP around 2230, where IV labetolol 40mg was administered. Patient has been complete and pushing for the last approximately 2.5 hours. She has had some difficulty with pain control, where RUBBER AND PLASTICS WORKER returned to bedside to bolus epidural. Patient had recurrent severe range BPs during this evaluation/bolus around 0322, where IV labetolol 40mg was again given. Felipa noted anticipated next step of hydralazine IV if further severe HTN is noted. I reviewed BPs MAR and BP course. She has received a total of 100mg IV labetolol in the last 24 hours and 30mg nifedipine XL. Since suboptimal resolution of severe hypertension was noted with labetolol, I do think it would be reasonable to trial hydralazine as a next agent. Plan would be to utilize hydralazine 5mg IV with q10 min BP evaluation, if still in the severe range recommend a second dose of 5mg (then 10mg if still severe) to max dose of 20mg total in 24 hours. If still severe, we could route back to labetolol as we do still have 200mg IV labetolol available until we reach max daily dose of 300mg/24 hours. If she has a period of improved BP to normal/mild range then rebound back to severe, explained we could start back with labetolol IV 20mg, then 40 then 80mg doses per protocol. If she stays severe despite the maximum IV hydralazine, would jump back to 80mg IV labetolol. Again, we will need to be mindful of maximum daily limit of 300mg labetolol. In addition, we can utilize PO short acting nifedipine as well in time if resistant HTN is noted. Patient continues to get Q6H PreE labs - Plt 192, Cr 0.6, AST 35 and ALT 21 at last evaluation. During our conversation, 5mg of IV hydralazine was administered 413 and subsequent BP was fortunately improved to 151/90. Feilpa Delarosa CNM expressed understanding for next steps. She understands Ob service is immediately available for BP management and can assume care if desired. Objective Vital Signs: Last Vital Signs Temp 97.9 F 11/01/24 04:26 Pulse 78 11/01/24 04:27 Resp 16 11/01/24 00:45 BP 151/90 H 11/01/24 04:27 Pulse Ox 98 11/01/24 02:12 Pelvic Exam Dilation (cm): 10 Effacement (%): 100 Station: +1 Contractions Monitor mode: External Contraction pattern: Irregular Contraction intensity: Strong/Firm Pitocin Rate (mU/min): 15 Assessment Station: +1 Amniotic Membrane Status: AROM Status: Category l Heart Rate Baseline: 110 Monitor Accelerations: Present Monitor Decelerations: None
[2024-11-01 04:38] LABS: Hematocrit 37.6 % (33.0-51.0); Hemoglobin* 13.5 gm/dL (12.0-16.0); Mean Corpuscular HGB Conc 36 gm/dL (32-36); Mean Corpuscular Hemoglobin 32 pg (26-34); Mean Corpuscular Volume 90 fL (80-100); Red Blood Count 4.17 m/uL (4.00-5.20); White Blood Count* 16.11 K/uL (4.50-11.00)
[2024-11-01 04:42] LABS: Slide Review Reflex No
[2024-11-01 04:50] LABS: Alanine Aminotransferase* 21 U/L (4-35); Aspartate Amino Transferase* 35 U/L (12-35); Blood Urea Nitrogen* 8 mg/dL (5-24); Creatinine* 0.7 mg/dL (0.5-1.5); Est. Creatinine Clearance* 103.32; Estimated Glomerular Filt Rate 121 ml/min
[2024-11-01] MEDS: AZITHROMYCIN 500 MG in 0.9 % SODIUM CHLORIDE 250 ml 250 ML 255 MG IVPB (05:03)
--- NOTE | 2024-11-01 05:21 | PM.OBPNL ---
Subjective Time Seen by Provider: 05:21 Date Seen: 11/01/24 Narrative: Sheri is a 28yo ongoing IOL at 39w1d GA for preeclampsia with severe features. is otherwise complicated by hypothyroidism, succenturiate placenta. She is an established patient of the CNM service, where her labor has been managed by CNM and HTN managed by OBs. Please see my previous notes and Dr. Sprague' consult note from 10/30. Herman of care by OB service was requested 0448 as patient expressed a desire for . Patient is in complete in pushing intermittently since 0200. Her starting station was +1, where initially there was descent noted with pushing efforts. Patient has had difficulty with pain control through labor and particularly the 2nd stage, requiring by EXTRACTOR OPERATOR SOLVENT PROCESS. In addition, she has had severe range blood pressures necessitating IV labetalol (total 100 mg in last 24 hours) and a single dose of IV hydralazine 5 mg. With her last epidural bolus, she had improvement of pain that was very short lived for less than an hour. As such, was counseled on her options and patient has elected to proceed with a primary delivery. Her station is still +1 per Felipa Delarosa CNM at rest. I was notified of patient request for , recommended Pitocin be turned off. I presented the bedside. On arrival, Sheri from to the history. She has exhausted pain from her labor course. Offered to complete a cervical exam to ensure she is not a candidate for an operative vaginal delivery, though admittedly by Felipa's exam the station would be too high. In addition, she has not necessarily demonstrated to make objective descent in terms of station during pushing but this is also complicated by poor pain control and blood pressure management. In total, Sheri notes she would not be interested in operative vaginal delivery in this exam was not completed. Objective Exam: General: Fatigued. Alert and oriented, no acute distress. Breathes through contractions. Psych: Appropriate mood and affect Abdomen: Gravid, vertex Cervix: 10/100/+1 per Felipa Delarosa CNM NST: Category 1, baseline 115bpm with moderate variability. [place]: Carmen about q4-5 minutes. Vital Signs: Last Vital Signs Temp 97.9 F 11/01/24 04:26 Pulse 76 11/01/24 05:16 Resp 16 11/01/24 00:45 BP 149/81 H 11/01/24 05:16 Pulse Ox 98 11/01/24 02:12 Pelvic Exam Dilation (cm): 10 Effacement (%): 100 Station: +1 Contractions Monitor mode: External Contraction pattern: Irregular Contraction intensity: Strong/Firm Pitocin Rate (mU/min): 15 Assessment Station: +1 Amniotic Membrane Status: AROM Status: Category l Heart Rate Baseline: 110 Monitor Accelerations: Present Monitor Decelerations: None Plan Plan: Sheri is a 28yo ongoing IOL at 39w1d GA for preeclampsia with severe features. is otherwise complicated by hypothyroidism, succenturiate placenta. She is an established patient of the CNM service, where her labor has been managed by CNM and HTN managed by OBs. Please see my previous notes and Dr. Sprague' consult note. Patient has had a prolonged induction, where her active in 2nd stage of labor has been particularly complicated by difficulty with pain control. She has received several boluses of her epidural by EXTRACTOR OPERATOR SOLVENT PROCESS, with diminishing returns in terms of duration of her pain control. In addition, she has had sustained severe range blood pressures necessitating IV treatment. In total, she has received labetalol 100 mg IV and hydralazine 5 mg IV in the last 24 hours. Received a nifedipine XL 30 mg dose on 10/31 at 2200. Patient has been complete and pushing intermittently since 0200. The station remained at +1, though descent was noted with expulsive efforts. Between contractions, patient is technically unchanged. That said, her pushing efforts have been interrupted several times by difficulty with pain control and treatment of IV treatment of blood pressures. Patient is understandably exhausted and struggling with pain control. As such, she has requested a delivery. Strictly speaking, our indication for is maternal request and difficulty with pain control. She does not truly meet criteria for arrest of descent as her second stage expulsive efforts have been intermittent. We discussed the risks and benefits of primary delivery and proceed as indicated in detail. With regard to risks, reviewed the risk of bleeding, infection, damage to surrounding structures, medical complications from surgery/anesthesia such as VTE, heart attack and stroke. Explained that Sheri is at increased risk of hemorrhage in the setting of intrapartum and 2nd stage . She is a candidate for Pitocin, TXA, Hemabate if needed - will avoid Methergine in the setting of preeclampsia with severe features. Explained potential surgical steps that could be required if severe bleeding is noted. Patient would consent to blood transfusion if necessary. With regard to infection, plan to proceed with perioperative Ancef and azithromycin. Reviewed the risk of damage to surrounding structures including the uterus, tubes, ovaries, bowel, bladder, blood vessels, baby. Recommend a pelvic exam in the operating room so I can assess the station and attempt to de-station the fetus immediately prior to proceeding with . Explained potential necessary steps if deeply impacted head is encountered. - After counseling, written consent for primary delivery and proceed as indicated was obtained. Plan to proceed to the operating room. - Perioperative Ancef and azithromycin - Blood type O positive, active type and screen on file - GBS negative - Pediatrics to attend delivery in the setting of unscheduled and preeclampsia severe features
[2024-11-01] MEDS: CEFAZOLIN 2 GM INJ IVP (05:50)
[2024-11-01] MEDS: CARBOPROST TROMETHAMINE 250 MCG/ML INJ IM (06:11)
--- NOTE | 2024-11-01 06:46 | P.OBPRC_ITS ---
Procedure Time Seen by Provider: 06:48 Date of procedure: 11/01/24 Pre-op diagnosis: Preeclampsia with severe features, prolonged IOL, maternal request for Post-op diagnosis: same Procedure Done: Global Will [facility] bill your pro fee for this procedure?: Yes Blood Loss Measurement Type: QBL (315) Bakri Used: No IV fluids (mL): 900 Urine Output (mL): 75 Surgeon: Edna Lovell MD Anesthesia Type: General Findings: Liveborn male Normal uterus, bilateral fallopian tubes and ovaries 1cm simple appearing left paratubal cyst, thin stalk danging from midportion of tube Procedure Name: Primary Delivery Left paratubal cyst removal Procedure Description: Patient was taken to the operating room with IV running. She received cefazolin and azithromycin in preoperative prophylaxis. Epidural was previously administered and bolused. Morrison catheter was previously inserted. She was prepped and draped in the usual sterile fashion. Anesthesia was tested and found to be adequate, where patient did not have any sharp pain across the distribution of the lower abdomen. She did note slight pinching sensation when test was performed at nearly the level of the umbilicus. In total, anesthesia was felt to be adequate where we did start procedure. A low-transverse skin incision was made with a scalpel. Patient noted the onset of sharp pain as I reached the midline to left margin of the skin incision. She affirmed again that this was sharp. As such, we discussed recommendation to proceed with under general anesthesia. Patient provided verbal consent, was previously counseled about this risk. Procedure was paused, where NEWS SPECIALIST then performed induction of anesthesia and endotracheal intubation. Once cleared to proceed, the incision was sharply carried through to the underlying layer of fascia with the scalpel. The subcutaneous fat was dissected off the underlying fascia with Bovie and blunt dissection. The fascia was nicked in the midline with a scalpel, and this incision was extended laterally with scissors. The rectus muscles were in the midline. Peritoneum was identified and entered bluntly. Bovie was used to widen this opening laterally. Amilcar O retractor was inserted and tightened down, providing excellent visualization of the lower uterine segment. The bladder reflection noted to be advanced along the lower uterine segment. A bladder flap was created with a combination of sharp and blunt dissection. Low-transverse uterine incision was made with a scalpel. Incision was widened bluntly. The infant's head was grasped through the hysterotomy in JOSE position and elevated to the hysterotomy. The remainder of the body delivered without incident with the help of fundal pressure. No nuchal cord was noted. Cord was clamped and cut after 30 seconds. was handed off to attending Pediatrics provider and nurses. The placenta was delivered with gentle traction on the cord. The uterus was cleaned of all clots and debris with the dry lap pad. No extension of hysterotomy was noted. Uterine atony was noted, where dilution solution of 40u IV pitocin, 1g IV TXA was requested and administered. The hysterotomy was reapproximated with 0 Vicryl in a running, locked fashion. Continued atony was noted, where uterine massage was performed and IM Hemabate was requested and administered. Second layer of the same suture was used in imbricating fashion to obtain hemostasis. Significant improvement in uterine tone was noted. Uterus was reintroduced to the abdominal cavity. Oozing was noted at the midportion of the hysterotomy, where an additional [id number] suture was applied at the midline. Excellent hemostasis of the hysterotomy and bladder flat was noted. The adnexa were examined and noted to be normal in appearance. A 1cm left paratubal cyst was noted to be dangling from the midportion of the tube, removed with electrocautery and sent for pathologic evaluation. The cul-de-sac and gutters were cleansed with dampened laparotomy sponge, removing any further clots and debris. The Amilcar O retractor was removed. The hysterotomy was reexamined and found to be hemostatic. The rectus muscles were examined and found to be hemostatic. The fascia was reapproximated with 0 Vicryl in a running fashion. Subcutaneous fat was irrigated and Bovie used on oozing vessels. The subcutaneous fat did not require closure. The skin was closed with a subcuticular stitch of 3-0 monocryl. Surgical glue was applied above this. Patient tolerated procedure well was taken to recovery area in stable condition. Surgical debrief was completed. details: - Liveborn male fetus - weight: 7lb 11oz - APGARs were 7 and 8 at 1 and 5 minutes respectively. No resuscitation was required. Complications: None Pathology: specimen obtained, sent to pathology Surgery Debrief Performed: Yes Condition: stable Disposition: floor
--- NOTE | 2024-11-01 07:16 | P.ANES_ITS ---
Anesthesia Charges Start Date/Time Anesthesia Start Date: 11/01/24 Anesthesia Start Time: 05:41 Stop Date/Time Anesthesia Stop Date: 11/01/24 Anesthesia Stop Time: 07:05 Coding CPT Codes CPT Codes: ANES/ANALG CS DELIVER ADD-ON - 03998 ([id number]) P3 - PATIENT W/SEVERE SYS DISEASE, QZ - DOG FOOD DOUGH MIXER SVC W/O FUR DRESSER BY
--- NOTE | 2024-11-01 07:16 | W.ANESCHARGE ---
Anesthesia Charges Start Date/Time Anesthesia Start Date: 11/01/24 Anesthesia Start Time: 05:41 Stop Date/Time Anesthesia Stop Date: 11/01/24 Anesthesia Stop Time: 07:05 Coding CPT Codes CPT Codes: ANES/ANALG CS DELIVER ADD-ON - 74769 ([id number]) P3 - PATIENT W/SEVERE SYS DISEASE, QZ - CLEANING PORTER SVC W/O SET AND EXHIBIT DESIGNER BY
--- NOTE | 2024-11-01 07:17 | P.NB_ITS ---
Nerve Block Nerve Block Time Seen by Provider: 06:45 Date Seen: 11/01/24 Type of block requested by surgeon for post-operative analgesia: TAP Side: bilateral Time out performed: Yes Verification of patient name: Yes Verification of date of : Yes Site marking: not applicable Name of person performing procedure: Carly Continuous monitoring Was continuous monitoring of O2 sat, B/P, immunopathologist, recorded every 15 minutes?: Yes Procedure Checklist: sterile prep, needles and gloves Ultrasound guided. Images saved: Yes Medications given in 5ml increments after negative aspiration: Marcaine %: 0.25 mL: 30 Needle gauge: 20 and Exparel mL: 10 Patient tolerated procedure well: Yes Block Charges Block Charge (with Pro Fee): TAP Bilateral Use of Ultrasound Machine for Block: Yes- US Guidance/pain block
--- NOTE | 2024-11-01 07:39 | SUR.PHASEI ---
patient met discharge criteria per anesthesia
[2024-11-01] MEDS: LACTATED RINGERS 1000 ML 1,000 ML 35 ML IV (07:40)
[2024-11-01] MEDS: LOPERAMIDE 4 EACH PO (07:44)
--- NOTE | 2024-11-01 09:25 | PM.ANPOST ---
Post Anesthesia Note Post Anesthesia Note Patient seen: Inpatient Respiratory Status: adequate Cardiovascular Status: adequate Mental Status: baseline Pain: adequate Temp: baseline Anesthetic awareness: N/A Complications: none Follow care: none
[2024-11-01 10:37] LABS: Hematocrit 36.2 % (33.0-51.0); Hemoglobin* 12.7 gm/dL (12.0-16.0); Mean Corpuscular HGB Conc 35 gm/dL (32-36); Mean Corpuscular Hemoglobin 32 pg (26-34); Mean Corpuscular Volume 91 fL (80-100); Red Blood Count 3.96 m/uL (4.00-5.20); White Blood Count* 17.85 K/uL (4.50-11.00)
[2024-11-01 10:40] LABS: Slide Review Reflex No
[2024-11-01 10:57] LABS: Alanine Aminotransferase* 23 U/L (4-35); Aspartate Amino Transferase* 38 U/L (12-35); Blood Urea Nitrogen* 7 mg/dL (5-24); Creatinine* 0.7 mg/dL (0.5-1.5); Est. Creatinine Clearance* 103.32; Estimated Glomerular Filt Rate 121 ml/min
[2024-11-01] MEDS: MAGNESIUM Infusion 40 GM/1,000 ML IV.SOLN IVPB (11:09)
[2024-11-01] MEDS: ACETAMINOPHEN 500 MG TABLET 1000 MG PO ×2 (15:46→22:25)
[2024-11-01 16:12] LABS: Hematocrit 35.9 % (33.0-51.0); Hemoglobin* 12.5 gm/dL (12.0-16.0); Mean Corpuscular HGB Conc 35 gm/dL (32-36); Mean Corpuscular Hemoglobin 32 pg (26-34); Mean Corpuscular Volume 93 fL (80-100); Red Blood Count 3.87 m/uL (4.00-5.20); White Blood Count* 17.53 K/uL (4.50-11.00)
[2024-11-01 16:20] LABS: Slide Review Reflex No
[2024-11-01 16:31] LABS: Alanine Aminotransferase* 23 U/L (4-35); Aspartate Amino Transferase* 39 U/L (12-35); Blood Urea Nitrogen* 8 mg/dL (5-24); Creatinine* 0.8 mg/dL (0.5-1.5); Est. Creatinine Clearance* 90.41; Estimated Glomerular Filt Rate 103 ml/min
[2024-11-01] MEDS: LABETALOL HCL 100 MG TABLET 200 MG PO ×2 (18:38→21:02)
[2024-11-01] MEDS: LACTATED RINGERS 1000 ML 1,000 ML 75 ML IV (19:39)
[2024-11-01 22:34] LABS: Alanine Aminotransferase* 21 U/L (4-35); Aspartate Amino Transferase* 38 U/L (12-35); Blood Urea Nitrogen* 8 mg/dL (5-24); Creatinine* 0.8 mg/dL (0.5-1.5); Est. Creatinine Clearance* 90.41; Estimated Glomerular Filt Rate 103 ml/min
[2024-11-01 22:37] LABS: Hematocrit 33.3 % (33.0-51.0); Hemoglobin* 11.5 gm/dL (12.0-16.0); Mean Corpuscular HGB Conc 35 gm/dL (32-36); Mean Corpuscular Hemoglobin 33 pg (26-34); Mean Corpuscular Volume 94 fL (80-100); Red Blood Count 3.54 m/uL (4.00-5.20); White Blood Count* 14.86 K/uL (4.50-11.00)
[2024-11-01 22:44] LABS: Slide Review Reflex No
[2024-11-02] VITALS (8 sets, daily range): BP systolic 114–145; BP diastolic 71–89; PULSE 63–90; RESP 16; TEMP 36.4–37.1; O2SAT 96–97
[2024-11-02 04:34] LABS: Hematocrit 33.1 % (33.0-51.0); Hemoglobin* 11.3 gm/dL (12.0-16.0); Mean Corpuscular HGB Conc 34 gm/dL (32-36); Mean Corpuscular Hemoglobin 33 pg (26-34); Mean Corpuscular Volume 96 fL (80-100); Red Blood Count 3.46 m/uL (4.00-5.20); White Blood Count* 12.33 K/uL (4.50-11.00)
[2024-11-02 04:42] LABS: Slide Review Reflex No
[2024-11-02] MEDS: ACETAMINOPHEN 500 MG TABLET 1000 MG PO ×3 (05:11→22:46)
[2024-11-02] MEDS: LEVOTHYROXINE 25 MCG TABLET PO (06:41)
[2024-11-02 06:52] LABS: Blood Urea Nitrogen* 10 mg/dL (5-24); Creatinine* 0.8 mg/dL (0.5-1.5); Est. Creatinine Clearance* 90.41; Estimated Glomerular Filt Rate 103 ml/min
[2024-11-02 06:53] LABS: Alanine Aminotransferase* 19 U/L (4-35); Aspartate Amino Transferase* 38 U/L (12-35)
[2024-11-02] MEDS: LABETALOL HCL 100 MG TABLET 200 MG PO ×3 (08:43→20:38)
[2024-11-02] MEDS: DOCUSATE SODIUM 100 MG CAPSULE PO (08:43)
[2024-11-02] MEDS: SIMETHICONE 80 MG TAB.CHEW PO (10:28)
--- NOTE | 2024-11-02 10:51 | P.OBPN_ITS ---
OB - PN:Subj Subjective Date Seen: 11/02/24 Interval history: Sheri is a 28-year-old G1 now P 1-0-0-1 woman who is status post primary low- transverse delivery on 11/01/2024 for indication of maternal request in the setting prolonged induction of labor for preeclampsia with severe features at term. This was performed under general anesthesia for inadequate pain control with epidural. Ob problem list: 1. Bilateral pelviectasis 2. Biventricular echogenic foci of fetus 3. Suction to reoccur anterior accessory lobe 4. Hypothyroidism, on levothyroxine (approximately 37.5 mcg daily) Blood pressures been within normal ranges shunts 183 last night. Prior to that, there were several elevations into the 140s over 90s to 100s. She is most recently treated with nifedipine ER 60 mg b.i.d.. Narrative: She reports that pain is worst when she is arising from a lying position. She is using an abdominal binder and is walking, but moving slowly. She denies any difficulties with urination. She denies any heavy bleeding. She is bottle feeding her infant son. OB - PN: Obj Exam Physical Exam: Vital signs: Temp Pulse Resp BP Pulse Ox O2 Del Method 98.6 F 80 16 130/83 96 Room Air 11/02/24 04:55 11/02/24 04:55 11/02/24 04:55 11/02/24 04:55 11/02/24 04:55 11/02/24 04:55 Narrative: General: Pleasant, no acute distress Heart: Regular rate and rhythm, no murmur or gallop Lungs: Clear to auscultation bilaterally Abdomen: Soft, nontender, fundus 1 cm above umbilicus, incision clean, dry, and intact Lower extremities: 2+ edema to bilateral shins, no erythema OB - PN: Obj Data Labs Labs: Laboratory Results - last 24 hr 10/30/24 11/01/24 11/01/24 14:16 10:30 16:08 WBC 17.53 H RBC 3.87 L Hgb 12.5 Hct 35.9 MCV 93 MCH 32 MCHC 35 Plt Count 202 BUN 7 8 Creatinine 0.7 0.8 Estimated Creat Clear 103.32 90.41 Estimated GFR 121 103 Magnesium 7.1 H* 7.6 H* AST 38 H 39 H ALT 23 23 RPR Screen Non Reactive 11/01/24 11/02/24 22:15 04:23 WBC 14.86 H 12.33 H RBC 3.54 L 3.46 L Hgb 11.5 L 11.3 L Hct 33.3 33.1 MCV 94 96 MCH 33 33 MCHC 35 34 Plt Count 182 179 BUN 8 10 Creatinine 0.8 0.8 Estimated Creat Clear 90.41 90.41 Estimated GFR 103 103 Magnesium 7.2 H* 7.2 H* AST 38 H 38 H ALT 21 19 RPR Screen OB - PN: A/P Delivery Assessment and Plan (1) Severe preeclampsia: Status: Acute Assessment and Plan: Now status post 24 hours of magnesium sulfate infusion. Preeclampsia labs have been stable. She was started on nifedipine 60 mg ER b.i.d., and her blood pressures in recent history have been very well controlled. Will continue to observe. Should her blood pressures today within this range, she would be a candidate for discharge tomorrow. (2) Status post primary low transverse section: Problem details: 6:08 Am, General anesthesia. Status: Acute Assessment and Plan: Appropriate postoperative course thus far. Plan day: 1
--- NOTE | 2024-11-02 11:19 | PM.OBPNL ---
Subjective Time Seen by Provider: 05:00 Date Seen: 11/01/24 Narrative: Late entry note: Around 0445 I was called to the room to talk to Sheri. She was again feeling lots of pain in her back and low abdomen. She felt exhausted, defeated, and in a lot of pain. She was wondering what her options were as she felt she couldn't continue much longer. Discussed that medically there wasn't an indication for a delivery as FHR tracing was in the normal range and she had only been pushing for around 2 hours with breaks for when the epidural was being rebolused. Discussed that given her situation she could request an elective .The last epidural bolus lasted less than an hour and she was having difficult pushing due to the pain. On exam she was able to make descent with pushing but it was less effect than it had been when her pain was well controlled. Discussed that could keep pushing with support and assistance from the staff or elect for a . She would like to proceed with a delivery and Dr. Lovell was notified to consults. See her note for further details. Turned off Pitocin per her request given change in plan for delivery. Objective Vital Signs: Last Vital Signs Temp 98.6 F 11/02/24 04:55 Pulse 80 11/02/24 04:55 Resp 16 11/02/24 04:55 BP 130/83 11/02/24 04:55 Pulse Ox 96 11/02/24 04:55 O2 Del Method Room Air 11/02/24 04:55 Pelvic Exam Dilation (cm): 10 Effacement (%): 100 Station: +1 Contractions Monitor mode: Internal (IUPC still present but no longer tracing intensity of contractions. Used only for detecting presence of contractions not MVUs.) Contraction Frequency: 3-5 min Contraction pattern: Irregular Contraction intensity: Strong/Firm Pitocin Rate (mU/min): 0 Assessment Assessment: active labor Station: +1 Amniotic Membrane Status: AROM Status: Category l Heart Rate Baseline: 110 Bone Puller Variability: Moderate (6-25) Monitor Accelerations: Present Monitor Decelerations: None Plan Plan: 28 yo at 39 1/7 weeks gestation? complicated by:?Bilateral pelviectasis appeared resolved at 22 weeks but declined 3rd trimester scan; biventricular echogenic foci, declined level II; Succenturiate anterior accessory lobe; hypothyroid, hep b non-immune Labor type: Induced, second stage of labor? Category 1 FHR pattern.? ? Labor complicated by: Pre-eclampsia with SF, on magnesium drip, maternal pain related to ineffective epidural coverage. GBS negative? ? PLAN:? 1. Maternal request for delivery consultation. Dr. oLvell notified and will consult. Care relinquished to Dr. Lovell. 2. Monitoring per policy, continuous, IUPC in place but not effective so no longer tracking MVUs. 3. Epidural currently in place. Has been bloused by he ROTOR PLATE WASHER for pain control with limited, short term relief. No longer giving her pain control. 4. Anticipate procceding with delivery.
[2024-11-02] MEDS: SODIUM CHLORIDE 0.9 % (FLUSH) 10 ML SYRINGE IVF (12:40)
[2024-11-02] MEDS: IBUPROFEN 600 MG TABLET PO (19:43)
[2024-11-03] VITALS (7 sets, daily range): BP systolic 110–157; BP diastolic 73–95; PULSE 63–82; RESP 16; TEMP 36.6–37.1; O2SAT 96–97
[2024-11-03] MEDS: IBUPROFEN 600 MG TABLET PO ×2 (01:21→09:10)
[2024-11-03] MEDS: ACETAMINOPHEN 500 MG TABLET 1000 MG PO (06:11)
[2024-11-03] MEDS: DOCUSATE SODIUM 100 MG CAPSULE PO (09:06)
[2024-11-03] MEDS: LABETALOL HCL 100 MG TABLET 200 MG PO (09:08)
[2024-11-03] MEDS: LEVOTHYROXINE 25 MCG TABLET PO (09:09)
--- NOTE | 2024-11-03 09:37 | P.DS_ITS ---
DS: Providers Provider Time Seen by Provider: 09:47 Date Seen: 11/03/24 Date of admission: 10/30/24 16:31 Primary care physician: Akil Martinez MD Admitting Clinician: Karena Diaz CNM Consults: 10/30/24 20:01 Consult to Physician [CONS] Routine Comment: Consulting Provider: Dunia Sprague Has provider been notified: Yes Attending Physician on discharge: Edna Lovell MD Exam 2 Narrative: Exam Narrative: Vital signs reviewed and are within normal limits in the setting of preeclampsia with severe features. Overall, her blood pressures have been adequately controlled on her current regimen. General: Alert and oriented, no acute distress Psych: Appropriate mood and affect Heart: Regular rate and rhythm Lungs: Clear to auscultation Abdomen: Soft, mild gaseous distention. Tender to palpation in the lower quadrants, consistent with postoperative state- no rebound or guarding. Fundus palpates firm at 1 below umbilicus. Incision is clean/dry and well- approximated, overlying surgical glue noted. No significant ecchymosis. Extremities: 2+ pitting edema, no calf pain/erythema Const: Vital Signs, click to edit/add: Vital Signs - 24 hr 11/02/24 12:30 11/02/24 16:15 11/02/24 19:44 Temperature 98.0 F 98.2 F 98.7 F Pulse Rate [Left P ulse Oximeter] 90 75 63 Respiratory Rate 16 16 16 Blood Pressure [Ri ght Arm] 115/76 144/88 H 143/89 H Pulse Oximetry 97 96 97 Oxygen Delivery Me thod Room Air Room Air Room Air 11/02/24 20:06 11/03/24 00:06 11/03/24 05:00 Temperature 98.0 F 98.0 F Pulse Rate [Left P ulse Oximeter] 82 82 Respiratory Rate 16 16 Blood Pressure [Ri ght Arm] 145/84 H 110/73 Pulse Oximetry 97 97 Oxygen Delivery Me thod Room Air Room Air 11/03/24 06:26 Temperature 98 F Pulse Rate [Left P ulse Oximeter] 70 Respiratory Rate 16 Blood Pressure [Ri ght Arm] 131/85 Pulse Oximetry 97 Oxygen Delivery Me thod Room Air OB - DS: Summary Hospital Course Hospital Course: The patient is a 28 year old G 1 P 1 at 38w6d gestation that was admitted to the Center on 10/30/24 for induction of labor in the setting of preeclampsia with severe features. She had an uncomplicated delivery, aside from the need to convert to general anesthesia due to pain control. She delivered a viable male . She is bottle feeding. the patient has done well. Sheri has been maintained on nifedipine 60 mg b.i.d. and labetalol 200 mg t.i.d. the last 24 hours. Her blood pressures have been in the normal to low mild range, all less than 150/100. She denies headaches, vision changes or right upper quadrant pain. She has noticed her edema is improving with time, though still persistent. Endorses robust urine output, 2400cc in last 8 hours. She is overall feeling well. Notes her pain is well controlled on ibuprofen, Tylenol and oxycodone (has use this twice). Pain is worse with transition movements, improved with abdominal support belt. She has no incision concerns. Appetite is appropriate, no nausea/vomiting. Denies any fever/chills, chest pain or dyspnea. Ambulates without difficulty. Voiding spontaneously. Passing flatus, no bowel movement yet. Peripartum Data delivery method: Primary C/S; Labored Procedures: Procedures Operation Date: 11/01/24 05:15 Actual Procedure Side Surgeon p Section Sue Lovell MD [place] Gender: Male Time Spent with Patient Time attestation: Total time spent providing and/or coordinating discharge services: Time spent: Greater than 30 minutes Discharge Plan Discharge Disposition: Home, Self-Care Date of Admission: 10/30/24 16:31 Consulting Providers: Dunia Sprague Primary Care Provider: Akil Martinez Condition: Stable Anticipated Discharge Date/Time: 11/03/24 09:37 Discharge Medications: New nifedipine 30 mg Tablet Extended Release 60 mg PO BID Qty: 120 1RF labetalol 100 mg Tablet 200 mg PO TID Qty: 180 0RF oxycodone 5 mg Tablet 5 mg PO Q6H PRN (Reason: Pain) Qty: 15 0RF Continued PNV 119-iron fum-folic acid 29 mg iron- 1 mg tablet 1 tab PO DAILY Changed levothyroxine 25 mcg tablet 25 mcg PO DAILY Qty: 120 3RF Rx Instructions: Take 50mcg Mon, Wed, Fri and 25mcg the other 4 days of the week. Discontinued aspirin 81 mg tablet,delayed release (DR/EC) 81 mg PO QDAY Discharge Orders: Discharge Order (Routine); Ordered 11/03/24 Ordered By: Sue Lovell Additional Instructions: Discharge instructions were reviewed with the patient including signs and symptoms of infection and home going medications Lifting Restrictions: 20 pounds for 6 weeks No not submerge incision under water X 2 weeks? Nothing vaginally for 6 weeks: no tampons or intercourse Do not drive while taking narcotic pain medication(s) Off Work or School for 8 weeks Symptoms to report to doctor: * Bleeding that saturates more than one pad per hour * Passing clots larger than the size of a golf ball * Pain not relieved by prescribed medication * Fever above 100.4 degrees Fahrenheit * A foul vaginal odor * Difficulty in emotions, mood, and functions * Thoughts of hurting yourself and/or * Painful, reddened area in your breast * Any drainage, redness, or tenderness in your IV/epidural site * Severe headache that doesn't improve after taking medications * Changes in vision, including temporary loss of vision, blurred vision, and/or light sensitivity * Upper abdominal pain (usually under ribs on the right side) * Decrease in urination or painful, frequent urinating * Chest pain * Shortness of breath * Tenderness or pain with redness and/swelling in the calf(s) of your leg [facility] for a BP check 11/05 or 11/06 Call with BP greater than or equal to 160/110, unrelenting headache, vision changes or right upper quadrant pain. 2-week visit: BP check, incision check, discuss feeding concerns, review control options and screen for anxiety/depression. 6-week visit for an annual exam. consultation services are available to all mothers and babies for the first year after delivery.? To make an appointment, please call [phone]. Follow Up Appointments: Akil Martinez MD [Primary Care Provider, Family Practice] Forms: [employer] Info Instructions
[2024-11-03] MEDS: LABETALOL HCL 100 MG TABLET PO (10:47)
[2024-11-03] MEDS: LABETALOL HCL 100 MG TABLET 300 MG PO (14:06)
== END 2024-11-03 15:56 | disposition home or self-care (01) | DRG 785 ==
LOC: OB OUT 16:31 → OB 16:31
PROVIDERS: Advanced Practice Midwife; Obstetrics & Gynecology; Admitting Provider Advanced Practice Midwife; PCP Family Medicine; Visit Provider Advanced Practice Midwife
PROC: 10D00Z1 Extraction of Products of Conception, Low, Open Approach (ICD-10-PCS; CPT 59514; principal; 2024-11-01 05:15)
DX: O14.14 Severe pre-eclampsia complicating childbirth (principal); O63.0 Prolonged first stage (of labor); O99.284 Endocrine, nutritional and metabolic diseases complicating childbirth; E03.9 Hypothyroidism, unspecified; O43.193 Other malformation of placenta, third trimester; O34.83 Maternal care for other abnormalities of pelvic organs, third trimester; N83.8 Other noninflammatory disorders of ovary, fallopian tube and broad ligament; G89.18 Other acute postprocedural pain; Z3A.38 38 weeks gestation of pregnancy; Z37.0 Single live birth
CPT/HCPCS: 01967; 01968; 36415; 59200; 64488; 76942; 82565; 82570; 83735; 84156; 84450; 84460; 84520; 85027; 86592; 86850; 86900; 86901; A4314; A9270; J0330; J0360; J0456; J0665; J0666; J0690; J1885; J2270; J2590; J2704; J2795; J3010; J3475; J7050; J7120

== ENCOUNTER 2024-12-13 15:57 | Outpatient (CLI) | payer OTHER, SELFPAY ==
[2024-12-13 18:10] LABS: TSH With Reflex to FT4* 0.057 uIU/mL (0.270-4.200)
[2024-12-13 18:49] LABS: Free T4 Free Thyroxine* 0.86 ng/dL (0.70-1.85)
== END 2024-12-13 15:58 | disposition home or self-care (01) ==
LOC: NFLDREF 16:08
PROVIDERS: PCP Family Medicine; Visit Provider Physician Assistant
DX: E03.9 Hypothyroidism, unspecified (principal)
CPT/HCPCS: 84439; 84443

== ENCOUNTER 2025-01-15 08:20 | Outpatient (CLI) | payer OTHER, SELFPAY | END 2025-01-15 08:21 | disposition home or self-care (01) | LOC: NFLDREF 08:21 | PROVIDERS: PCP Family Medicine; Visit Provider Obstetrics & Gynecology | DX: E03.9 Hypothyroidism, unspecified (principal) | CPT/HCPCS: 84439; 84443 ==

== ENCOUNTER 2025-04-08 09:20 | Outpatient (CLI) | payer OTHER, SELFPAY | END 2025-04-08 09:21 | disposition home or self-care (01) | LOC: NFLDREF 04-12 08:07 | PROVIDERS: PCP Family Medicine; Referring Provider Family Medicine; Visit Provider Family Medicine | DX: E03.9 Hypothyroidism, unspecified (principal) | CPT/HCPCS: 84443 ==